=== PATIENT | female | born 1985 | race Caucasian/White ===

== ENCOUNTER 2016-04-03 11:51 | Outpatient (CLI) | payer SELFPAY ==
[2016-04-03 12:28] VITALS: BP 137/75
[2016-04-03 13:01] VITALS: BP 125/72
[2016-04-03 13:36] VITALS: BP 134/78
[2016-04-03 14:02] VITALS: BP 131/74
[2016-04-03 14:12] LABS: EOSINOPHIL (%) 0.4 % (0-5); EOSINOPHIL COUNT 0.1 K/uL (0-0.3); HEMATOCRIT 37.8 % (36.0-46.0); IMMATURE GRANULOCYTE (%) 0.3 % (0.0-0.7); IMMATURE GRANULOCYTE COUNT 0.1 K/uL; LYMPHOCYTE COUNT 1.7 K/uL (1.0-2.8); MCH 30.1 PG (29.0-34.0); MCHC 33.9 G/DL (30.0-36.0); MCV 88.9 FL (83-99); MEAN PLAT.VOLUME 10.2 uM^3 (9.5-12.4); MONOCYTE (%) 5.2 % (3-12); MONOCYTE COUNT 0.9 K/uL (0-0.8); NEUTROPHIL (%) 83.5 % (45-76); NEUTROPHIL COUNT 13.6 K/uL (1.8-6.4); PLATELET COUNT 239 K/uL (156-360); RBC DIS.WIDTH-CV 13.9 % (11.8-14.6); RBC DIS.WIDTH-SD 45.2 % (39-53); RED BLOOD COUNT 4.25 M/uL (3.80-5.20); WHITE BLOOD COUNT 16.3 K/uL (4.1-10.2)
[2016-04-03 14:25] LABS: UR CREATININE CONCENTRATION 137.6 MG/DL
[2016-04-03 14:29] LABS: ANION GAP 9 MEQ/L (2-14); CHLORIDE 106 MEQ/L (99-109); POTASSIUM 3.8 MEQ/L (3.7-5.4); SAMPLE HEMOLYSIS CHECK 0; SAMPLE ICTERIC CHECK 0; SAMPLE LIPEMIA CHECK 0; SODIUM 138 MEQ/L (136-147); TOTAL BILIRUBIN 0.4 MG/DL (0.0-1.0)
[2016-04-03 14:34] LABS: ALKALINE PHOSPHATASE 85 IU/L (3-129); GFR ESTIMATE (CALCULATED) > 59 mL/min/; GLUCOSE 70 mg/dL (70-99); UREA NITROGEN (BUN) 7 mg/dL (9-23)
== END 2016-04-03 15:20 | disposition home or self-care (01) ==
LOC: LDRP-OP 11:51 → 2WEST 11:52
PROVIDERS: Nurse Practitioner
DX: O16.3 Unspecified maternal hypertension, third trimester (principal); O99.89 Other specified diseases and conditions complicating pregnancy, childbirth and the puerperium; Z3A.37 37 weeks gestation of pregnancy
CPT/HCPCS: 59025; 80053; 82570; 84156; 85025; G0378

== ENCOUNTER 2016-04-07 16:36 | Inpatient (IN) | payer OTHER ==
[2016-04-07] VITALS (10 sets, daily range): BP systolic 132–169; BP diastolic 65–90
[~2016-04-07] VITALS: Ht 162.6 cm; Wt 92.8 kg
[2016-04-07 17:43] LABS: EOSINOPHIL (%) 0.4 % (0-5); EOSINOPHIL COUNT 0.1 K/uL (0-0.3); IMMATURE GRANULOCYTE (%) 0.4 % (0.0-0.7); IMMATURE GRANULOCYTE COUNT 0.1 K/uL; LYMPHOCYTE COUNT 2.2 K/uL (1.0-2.8); MCH 29.8 PG (29.0-34.0); MCHC 33.6 G/DL (30.0-36.0); MCV 88.8 FL (83-99); MEAN PLAT.VOLUME 9.8 uM^3 (9.5-12.4); NEUTROPHIL (%) 83.4 % (45-76); NEUTROPHIL COUNT 16.9 K/uL (1.8-6.4); NRBC (%) 0.1 /100 WBC (0-0); PLATELET COUNT 248 K/uL (156-360); RBC DIS.WIDTH-CV 13.8 % (11.8-14.6); RBC DIS.WIDTH-SD 44.9 % (39-53); RED BLOOD COUNT 4.39 M/uL (3.80-5.20); WHITE BLOOD COUNT 20.2 K/uL (4.1-10.2)
[2016-04-07 18:06] LABS: ALKALINE PHOSPHATASE 92 IU/L (3-129); ANION GAP 11 MEQ/L (2-14); CHLORIDE 104 MEQ/L (99-109); GFR ESTIMATE (CALCULATED) > 59 mL/min/; GLUCOSE 70 mg/dL (70-99); POTASSIUM 3.9 MEQ/L (3.7-5.4); SAMPLE HEMOLYSIS CHECK 0; SAMPLE ICTERIC CHECK 0; SAMPLE LIPEMIA CHECK 0; SODIUM 136 MEQ/L (136-147); TOTAL BILIRUBIN 0.4 MG/DL (0.0-1.0); UREA NITROGEN (BUN) 9 mg/dL (9-23)
[2016-04-07] MEDS ORDERED: VALTREX1000 MG PO (18:50)
[2016-04-07] MEDS ORDERED: PRENATAL TABLE1 EAC3 PO (18:50)
[2016-04-07] MEDS ORDERED: IBUPROFEN800 MG PO (20:20)
[2016-04-08 03:45] VITALS: BP 109/55
[2016-04-08 09:52] VITALS: BP 137/67
[2016-04-08 14:03] VITALS: BP 125/67
[2016-04-08 20:15] VITALS: BP 122/73
[2016-04-08 22:34] VITALS: BP 121/73
[2016-04-09 08:13] VITALS: BP 127/65
[2016-04-09 11:07] VITALS: BP 114/73
[2016-04-09 11:08] VITALS: BP 114/73
== END 2016-04-09 12:28 | disposition home or self-care (01) | DRG 774 ==
LOC: LDRP-OP 16:36 → 2WEST 16:37 → LDRP-OP 05-15 00:41
PROVIDERS: Nurse Practitioner
DX: O13.4 Gestational [pregnancy-induced] hypertension without significant proteinuria, complicating childbirth (principal); R03.0 Elevated blood-pressure reading, without diagnosis of hypertension; O70.0 First degree perineal laceration during delivery; O62.3 Precipitate labor; O98.52 Other viral diseases complicating childbirth; Z37.0 Single live birth; Z3A.38 38 weeks gestation of pregnancy
CPT/HCPCS: 80053; 82570; 84156; 85025; J2590